=== PATIENT | male | born 1960 | race Caucasian/White ===

== ENCOUNTER 2021-01-29 21:32 | Emergency (ER) | payer OTHER ==
[~2021-01-29 21:32] MED LIST: PRINIVIL10 MG PO; VITAMIN B122500 MCG PO
[2021-01-29 22:51] LABS: BASOPHIL 0.5 % (0-2); EOSINOPHIL 1.8 % (0-5); HCT 45.2 % (42.0-52.0); HGB 14.9 g/dl (13.2-18.0); LYMPHOCYTE 21.7 % (15-48); MCH 29.6 pg (25.0-31.0); MCV 89.7 fL (78.0-100.0); MONOCYTE 10.5 % (0-12); MPV 9.9 fL (6.0-9.5); NEUTROPHIL 64.9 % (41-80); NRBC 0; PLT 331 K/uL (150-400); RBC 5.04 M/uL (4.70-6.00); RDW 13.6 % (11.5-14.0); WBC 12.7 K/uL (4.0-10.5)
[2021-01-29 22:53] LABS: BILIRUBIN NEGATIVE (NEGATIVE); BLOOD TRACE-LYSED Ery/uL (NEGATIVE); CLARITY CLEAR (CLEAR); COLOR YELLOW (YELLOW); GLUCOSE (U) NORMAL (NORMAL); LEUKOCYTES NEGATIVE Leu/uL (NEGATIVE); NITRITE NEGATIVE (NEGATIVE); PROTEIN NEGATIVE (NEGATIVE); SPECIFIC GRAVITY 1.025 (1.001-1.030); UROBILINOGEN 0.2 mg/dL (0.2-1.0)
[2021-01-29 22:59] LABS: SQUAMOUS EPITHELIAL CELLS RARE; URINARY RBC RARE
[2021-01-29 23:06] LABS: ALBUMIN 3.9 g/dL (3.4-5.0); BILIRUBIN - TOTAL 1.6 mg/dL (0.2-1.0); BUN/CREAT RATIO (CALC) 36.5 RATIO; CREATININE 0.96 mg/dL (0.67-1.17); GLOBULIN (CALCULATION) 3.6 g/dL; POTASSIUM 4.3 mmol/L (3.5-5.1); TOTAL PROTEIN 7.5 g/dL (6.4-8.2)
== END 2021-01-30 00:37 | disposition home or self-care (01) ==
LOC: FER 21:32
PROVIDERS: Nurse Practitioner Family
DX: E86.0 Dehydration (principal); I10 Essential (primary) hypertension; Z79.899 Other long term (current) drug therapy
CPT/HCPCS: 36415; 80053; 81001; 83690; 85025; Q9967

== ENCOUNTER 2022-01-13 21:59 | Emergency (ER) | payer OTHER ==
[2022-01-13 23:10] LABS: BUN/CREAT RATIO (CALC) 13.5 RATIO; CREATININE 1.11 mg/dL (0.67-1.17); POTASSIUM 3.7 mmol/L (3.5-5.1)
[2022-01-13 23:12] LABS: BASOPHIL 0.6 % (0-2); EOSINOPHIL 3.1 % (0-5); HCT 44.9 % (42.0-52.0); HGB 14.7 g/dl (13.2-18.0); LYMPHOCYTE 38.9 % (15-48); MCH 28.4 pg (25.0-31.0); MCHC 32.7 g/dL (32.0-36.0); MCV 86.7 fL (78.0-100.0); MONOCYTE 9.4 % (0-12); NEUTROPHIL 47.4 % (41-80); NRBC 0; PLT 340 K/uL (150-400); RBC 5.18 M/uL (4.70-6.00); RDW 13.3 % (11.5-14.0); WBC 10.1 K/uL (4.0-10.5)
[2022-01-14 03:20] LABS: BILIRUBIN NEGATIVE (NEGATIVE); BLOOD 3+ Ery/uL (NEGATIVE); CLARITY CLEAR (CLEAR); COLOR YELLOW (YELLOW); GLUCOSE (U) NORMAL (NORMAL); LEUKOCYTES NEGATIVE Leu/uL (NEGATIVE); NITRITE NEGATIVE (NEGATIVE); PROTEIN TRACE (LOW) mg/dL (NEGATIVE); SPECIFIC GRAVITY >=1.030 (1.001-1.030); UROBILINOGEN 0.2 mg/dL (0.2-1.0)
[2022-01-14 03:29] LABS: AMORPHOUS URATES CRYSTALS MODERATE; BACTERIA 1+; MUCOUS LARGE; URINARY RBC TNTC
[2022-01-14] MEDS ORDERED: PERCOCET 5-3251 EACH PO (04:40)
[2022-01-14] MEDS ORDERED: ONDANSETRON ODT4 MG PO (04:40)
[2022-01-14] MEDS ORDERED: PHENERGAN25 M1 PO (04:40)
== END 2022-01-14 04:55 | disposition home or self-care (01) ==
LOC: FER 21:59
PROVIDERS: Internal Medicine
DX: N13.2 Hydronephrosis with renal and ureteral calculous obstruction (principal); Z87.442 Personal history of urinary calculi
CPT/HCPCS: 36415; 80048; 81001; 85025; J1170; J2405; J2550; J7030